=== PATIENT | male | born 1990 | race Caucasian/White ===

== ENCOUNTER 2023-12-04 08:27 | Outpatient (OUT) | payer OTHER, MEDICAID, SELFPAY ==
--- NOTE | 2023-12-04 08:35 | MR_ITS ---
The [address] [address] Patient Name: RADHA LANDAVERDE MRN: [id number] date: 1990 Sex: M Assigned Patient Location: MRI Current Patient Location: MRI Accession/Order Number: [id number] Exam Date: 12/04/2023 09:05 Report Date: 12/04/2023 09:57 At the request of: NON-STAFF PHYSICIAN Procedure: MR cervical spine wo con MR cervical spine wo con, 12/04/2023 9:05 AM EDT INDICATION: Cervical Pain COMPARISON: There is no appropriate prior study for comparison. TECHNIQUE: Multiplanar, multisequential MRI images of cervical spine were obtained without contrast. FINDINGS: The sensitivity of the study has been decreased due to motion artifact. There is normal physiologic cervical lordosis. The vertebral heights are relatively preserved. The cervicomedullary junction is unremarkable. No definite signal abnormality within the spinal cord is noted. There are mild disc osteophyte complex associated with uncovertebral joint arthrosis from C3 to T1 contributing to neuroforaminal and canal stenosis. At the level of C2-C3, there is no neuroforaminal narrowing or canal stenosis. At the level of C3-C4, there is no neuroforaminal narrowing and no canal stenosis. At the level of C4-C5, there is no neuroforaminal narrowing and no canal stenosis. At the level of C5-C6, there is mild right and moderate left neuroforaminal narrowing and moderate canal stenosis. At the level of C6-C7, there is mild bilateral neuroforaminal narrowing and mild canal stenosis. Level of C7-T1 is unremarkable. No definite muscular or ligamentous injury is noted. MR/MR cervical spine wo con IMPRESSION: Mild degenerative changes of the cervical spine in particular at C5-C6 and C6-C7. Electronically authenticated by: JESSICA OCHOA Date: 12/04/2023 09:57
== END 2023-12-04 08:28 | disposition home or self-care (01) ==
DX: M54.2 Cervicalgia (principal)
CPT/HCPCS: 72141